=== PATIENT | male | born 1955 | race Caucasian/White ===

== ENCOUNTER 2024-09-20 12:39 | Emergency (ER) | payer OTHER, MEDICARE ==
[2024-09-20 12:44] VITALS: BP 136/77; PULSE 58; RESP 18; TEMP 97.5; BMI 21.9
[2024-09-20] MEDS: SODIUM CHLORIDE 0.9% 500 ML INFUS.BAG IV ONE (13:55)
[2024-09-20] MEDS: ACETAMINOPHEN 1000 MG/100 ML BAG IVPB ONE (14:00)
[2024-09-20] MEDS ORDERED: ACETAMINOPHEN INJECTION 100 ML ONE (14:01)
[2024-09-20 14:16] LABS: ABSOLUTE IMMATURE GRANULOCYTES 0.01 x10^3/uL (0.0-0.031); BASOPHILS # 0.03 x10^3/uL (0.01-0.08); EOSINOPHIL % 4.9 % (0.8-7.0); EOSINOPHILS # 0.36 x10^3/uL (0.04-0.54); MCHC 33.3 g/dl (32.3-36.5); MEAN CELL VOLUME 88.4 fl (79.0-92.2); MEAN PLT VOLUME 10.0 fl (9.4-12.4); MONOCYTE # 1.24 x10^3/uL (0.30-0.82); MONOCYTE % 16.8 % (5.3-12.2); RDW 13.8 % (12.2-16.6)
[2024-09-20 14:26] LABS: ALK PHOS 46.0 U/L (45-117); CO2 28.0 mmol/L (21-32); CREATININE 1.0 mg/dl (0.6-1.3); GLUCOSE,RANDOM 98.0 mg/dl (74-106); SGOT/AST 17.0 U/L (15-37); SGPT/ALT 16.0 U/L (7-52); TOT PROT 7.1 g/dl (6.4-8.2)
[2024-09-20 23:37] LABS: HIV INTERPRETATION NEGATIVE (NEGATIVE)
[2024-09-21 20:23] LABS: HCV DIAGNOSTIC IN-HOUSE W/RFLX NON-REACTIVE (NONREACTIVE)
== END 2024-09-20 15:41 | disposition home or self-care (01) ==
LOC: FER 12:39
PROC: 3E033NZ Introduction of Analgesics, Hypnotics, Sedatives into Peripheral Vein, Percutaneous Approach (ICD-10-PCS; principal; 2024-09-20)
DX: R19.7 Diarrhea, unspecified (principal); R50.9 Fever, unspecified; R11.2 Nausea with vomiting, unspecified; R10.9 Unspecified abdominal pain
CPT/HCPCS: 36415; 80053; 83690; 85025; 86803; 87389; 99284-25